=== PATIENT | male | born 1950 | race Caucasian/White ===

== ENCOUNTER 2024-01-31 14:28 | Outpatient (AMB) | payer MEDICARE, MEDICAID, SELFPAY ==
--- NOTE | 2024-01-31 14:30 | A.OFFVIS_ITS ---
Intake Vital Signs 01/31/24 14:47 Height 5 ft 0.7 in Weight 132 lb BMI 25.2 BP 114/72 Blood Pressure Location Lt brachial Position Sitting Respiration 12 Pulse 106 H Pulse Source Pulse Oximeter Pulse Oximetry (%) 93 Oxygen Delivery Method Room Air Intake Visit Reasons: Chronic Cervical Pain Intake Note: Patient comes in for initial visit was referred by primary care. Reports pain 08/21. Allergies lisinopril Allergy (Verified 01/31/24 14:48) Cough lidocaine patch Allergy (Uncoded 01/25/24 11:35) Swelling HPI HPI Comments History of Present Illness Details Sincere is very pleasant 73 years old gentleman who presents in my office with complains on cervicalgia pain in the neck. Somehow he is fairly convinced that his pain in the neck related to a procedure which was done on his neck many years ago. That was Marco A filter insertion, the procedure was done to prevent blood clots traveling to his lungs. The procedure was done from the cervical axis. Since then he believes that the pain is related to the procedure. She reports the pain starts behind the ears and goes down the neck and spreads down to the upper shoulders between the scapula us and lower in his back. He describes his pain as lots and lots of pressure. He can not sleep normally because of his pain. He believes that he never had any injection in his neck. However he describes the situation when some needle was placed in his neck however the procedure was not performed (this is according to the patient.). He has COPD coronary artery disease congestive heart failure chronic kidney disease stage 3 history of DVT in adulthood hypertension hyperthyroidism history of iliac artery occlusion impaired fasting glucose history of pericardial effusion right renal artery stenosis schizoaffective disorder and venous hypertension. His past surgical history significant for cardiac stents in 2019 IVC filter in serve it into IVC. He admits smoking cigarettes denies drinking alcohol denies recreational drugs. [facility] Medical History (Updated 01/31/24 @ 15:03 by Ernesto Ramos MD) Cervicalgia CHF (congestive heart failure) CKD (chronic kidney disease), stage III Chronic obstructive pulmonary disease HTN (hypertension) Family History (Updated 01/25/24 @ 11:34 by Katarina Fountain) Mother Uterine cancer Father Hypertension Stroke Social History (Updated 01/25/24 @ 11:32 by Katarina Fountain) Tobacco use type: Cigarette Substance Use Type: Marijuana Review of Systems Const Reports fatigue and Reports lethargy ENT Reports Normal hearing present Card Reports as per HPI Resp Reports as per HPI GI Reports no additional complaints Musc Reports as per HPI Neuro Reports no additional complaints, Reports Normal hearing present, Denies Abnormal speech present and Denies Sensory deficit (Neuro) Psych Reports as per HPI Endo Reports fatigue Physical Exam Vital Signs: Last Vital Signs Pulse 106 H 01/31/24 14:47 Resp 12 01/31/24 14:47 BP 114/72 01/31/24 14:47 Pulse Ox 93 01/31/24 14:47 Oxygen Delivery Method Room Air 01/31/24 14:47 BMI result Body Mass Index 25.2 Const General: acute distress mild Nutritional Appearance: malnourished and thin Orientation/consciousness: patient oriented x3 Eyes General: appearance normal, both eyes and all related structures Pupils: Equal, round and reactive pupils present EOM: EOMs intact bilaterally Neck Other: No tenderness on palpation in paraspinal spinal region cervical spine. Minor tenderness on palpation in the bilateral projection of the paraspinal muscles in the area of the between the shoulder blades. Axial pressure does not aggravate the pain however axial extension make the pain in the neck much better. Neck: No full ROM Chest Chest palpation & inspection: normal inspection of the chest Resp Effort & Inspection: abnormal respiratory effort, not able to speak in complete sentences, abnormal respiratory pattern, audible wheezes, no cough, decreased respiratory effort, grunting, labored, nasal flaring and pursed lip breathing Cardio Jugular venous distension: JVD GI Inspection: Yes normal to inspection Neuro General: patient oriented x3 and gait normal Cranial nerves: Yes CN's II-XII intact bilaterally, Yes Equal, round and reactive pupils present, Yes Normal hearing present and Yes Ability to bilaterally elevate shoulders present Speech: No Abnormal speech present Gait exam (Neuro): Normal gait present Motor exam (neuro): 5/5 motor strength present throughout Sensory Exam: No Sensory deficit (Neuro) Extrem General: No pedal edema Psych Speech and movement: Normal speech and movement present Affect: normal affect Attitude: cooperative Thought process: Normal thought process present Thought content: Normal thought content present Insight: Good insight present (Psych) Judgement: Good judgement present (Psych) Assessment & Plan Assessment & Plan (1) Spondylosis of cervical region without myelopathy or radiculopathy: Code(s): M47.812 - Spondylosis without myelopathy or radiculopathy, cervical region (2) Chronic pain syndrome: Code(s): G89.4 - Chronic pain syndrome (3) Schizoaffective disorder: Code(s): F25.9 - Schizoaffective disorder, unspecified Plan The patient had MRI done at [facility], his signed the medical information release note and we will obtain the MRI from this organization. I discussed possibility of treating this pain of the patient with some injections, diagnostic medial branch blocks were discussed, sprint PNS was discussed. When I mentioned stimulating wire he was immediately on the guards about this, he told me that ?there is a lot of lawsuits about those wires ?. I answered him that if he does not want any wires we can try steroid injections. He was asking appropriate questions on how long this injections would be lasting. I told him they would be lasting from 3-6 months. Then the patient asked and me what would be due after 6 months is over and I told him that we can repeat the procedure again. He appeared to be concerned about it he did not want to do this. I told the patient that when he will change his mind I will be able to help him. We will obtain his MRI and if he wants to schedule an appointment with me I will be glad to see him again. Coding Level of Care Code New Pt Level 3 (99210) Diagnoses Spondylosis of cervical region without myelopathy or radiculopathy M47.812 Chronic pain syndrome G89.4 Schizoaffective disorder F25.9
[2024-01-31 14:47] VITALS: BP 114/72; PULSE 106; RESP 12; O2SAT 93; BMI 25.2
== END 2024-01-31 15:00 | disposition home or self-care (01) ==
PROVIDERS: PCP Internal Medicine; Visit Provider Anesthesiology
DX: M47.812 Spondylosis without myelopathy or radiculopathy, cervical region (principal); G89.4 Chronic pain syndrome; F25.9 Schizoaffective disorder, unspecified
CPT/HCPCS: 99203

== ENCOUNTER → 2024-01-31 14:28 | Outpatient (BNVA) | payer MEDICARE, MEDICAID, SELFPAY | PROVIDERS: PCP Internal Medicine; Visit Provider Anesthesiology | DX: M47.812 Spondylosis without myelopathy or radiculopathy, cervical region (principal); G89.4 Chronic pain syndrome; F25.9 Schizoaffective disorder, unspecified; Z86.718 Personal history of other venous thrombosis and embolism | CPT/HCPCS: 99202 ==

== ENCOUNTER 2024-02-19 13:22 | Outpatient (AMB) | payer MEDICARE, MEDICAID, SELFPAY ==
--- NOTE | 2024-02-19 14:28 | HO.SPINEOV ---
Intake Intake Visit Reasons: Neck pain Intake Note: Mr. Park is here today c/o Shoulder/Neck pain. Axle Polisher Required: No Allergies lisinopril Allergy (Verified 01/31/24 14:48) Cough lidocaine patch Allergy (Uncoded 01/25/24 11:35) Swelling Assessment & Plan Assessment & Plan (1) Chronic pain syndrome: Code(s): G89.4 - Chronic pain syndrome Plan Dear Dr Mcleod, I saw Mr. Park in the office today to evaluate him for his neck pain. He has a very complicated 73-year-old male with extensive medical history not limited to but including CHF, CAD, severe COPD on oxygen at home, antithrombin 3 with history of DVTs, IVC filter, carotid stenosis amongst other things who has had posterior neck pain for 4 years. It has a midline posterior neck pain which radiates up to the back of his head. He will also get pain down across the top of his shoulders. He does not have any pain radiating down into the arms or hands. The pain is there all day every day and even at night. He has tried pain medications, [id number] as well as prescription without any significant relief. He is very frustrated because he can never seemed to get comfortable. He does not report any myelopathic symptoms. 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 He had cortisone injections 1 time at [facility] [employer] [facility] many many years ago. He has not even sure if it was done for this specific issue. He did see Dr. Ramos who discuss some options with him including injections and a spinal cord stimulator but the patient was reluctant to proceed with this. His daughter brought him here today for evaluation. She works at the hospital and wanted to see if there something we could offer him in evaluation. PMH: As above he has extensive medical problems not limited to but including CHF, CAD with stents a few years ago, severe COPD on oxygen at home but continues to smoke. 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 This is the limitations of what I know about his medical history what they could tell me but I suspect there is more. Social hx: Continues to smoke about 2 packs a day, does not drink use any recreational drugs Medications: Amlodipine, Eliquis, baby aspirin, atorvastatin, baclofen, cyclobenzaprine, isosorbide, methimazole, metoprolol, oxycodone, pantoprazole, Lyrica, Seroquel, Flomax Allergies: Lisinopril lidocaine patch Physical exam: He is cachectic, ill-appearing, gonzalez colored as she skin, his strength in his upper and lower extremities is full with diminished reflexes at the biceps, no White's sign, no clonus. He does have midline tenderness of the cervical spine. Imaging review: He has an MRI of the cervical spine done a [facility] in January of 2024 showing some reversal of the normal lordotic curvature of the cervical spine, there is a slight anterior listhesis of C7 on T1 and some moderate degenerative disc disease at C5-6 and C6-7. There is no spinal cord compression, no T2 cord signal change. Impression: 73-year-old male with extensive medical history including severe probably end-stage COPD on home oxygen continues to smoke, CAD, CHF, coagulopathy who presents today for evaluation of chronic posterior midline neck pain radiating out into his shoulders. He has had the pain now for 4 years, it has a chronic constant pain which is unrelenting. Has not responded to pain medications. He has not yet had a thorough trial of injections. He did try PT without any relief. I reviewed his MRI and it does show some degenerative changes and there is disc disease at multiple levels. In a typical situation we would try to localize this a little further and investigate for potential anterior cervical fusion but given his history, I think any attempt to fix his neck pain would ultimately result in very high morbidity and mortality. Especially any anterior approach would likely result in tracheostomy permanently and high complication risk of aspiration, pneumonia etc.. I think he should just follow up with Dr. Ramos and reconsider the injections. He understands that this is a much safer option for him so I will contact Dr. Ramos about resuming talks for the injections and spinal cord stimulator. Thank you for allowing us to care for your patient. The total time spent with this visit with this patient was 45 minutes reviewing history, physical exam, cervical imaging review, and implementation of treatment plan or further diagnostic testing Rajat Maddox MD,PhD [facility] Coding Level of Care Code New Pt Level 4 (36809) Diagnoses Chronic pain syndrome G89.4
== END 2024-02-19 15:25 | disposition home or self-care (01) ==
PROVIDERS: PCP Internal Medicine; Visit Provider Physician Assistant
DX: G89.4 Chronic pain syndrome (principal)
CPT/HCPCS: 99204

== ENCOUNTER → 2024-02-19 13:22 | Outpatient (BNVA) | payer MEDICARE, MEDICAID, SELFPAY | PROVIDERS: PCP Internal Medicine; Visit Provider Physician Assistant | DX: G89.4 Chronic pain syndrome (principal) | CPT/HCPCS: 99202 ==

== ENCOUNTER 2024-03-26 14:35 | Outpatient (AMB) | payer MEDICARE, MEDICAID, SELFPAY ==
--- NOTE | 2024-03-26 14:52 | MHC.OFFVIS ---
Vital Signs 03/26/24 15:03 Height 5 ft 0.7 in Weight 127 lb 8 oz BMI 24.3 BP 88/64 L Blood Pressure Location Lt brachial Position Sitting Respiration 14 Pulse 94 Pulse Source Pulse Oximeter Pulse Oximetry (%) 95 Oxygen Delivery Method Room Air Intake Visit Reasons: discuss options Intake Note: Patient comes in to discuss options. Reports pain 08/21. Allergies lisinopril Allergy (Verified 03/26/24 15:03) Cough lidocaine patch Allergy (Uncoded 01/25/24 11:35) Swelling HPI Comments Details: Sincere is very pleasant 73 years old gentleman who presents in my office with complains on cervicalgia pain in the neck. he is fairly convinced that his pain in the neck related to a procedure which was done on his neck many years ago. That was [place] filter insertion, the procedure was done to prevent blood clots traveling to his lungs. The procedure was done from the cervical axis. Prolonged and difficult conversation ensued today. I the patient is very desperate to get his pain alleviated. However he reports that he has needle phobia and the he may react abruptly to injections with sharp movements. This would create dangerous situation for the patient in the operating room for the patient as well as for the staff. I explained all of this to the patient. I offered him diagnostic medial branch block bilateral C4-C5 C6 in the attempt to alleviate his pain. He decided to think about it he will give us a call if he decides to go for this procedure. Alternatively we can try nonsteroid anti-inflammatory drugs to help his pain, he can not obtain those [id number]. Previously he was for did not to take NSAIDs because he was on Coumadin however since insertion of Marco A filter he has no longer on Coumadin. He was examined by neurosurgery Raajt Braden and he was recommended to go back to pain management. She reports the pain starts behind the ears and goes down the neck and spreads down to the upper shoulders between the scapula us and lower in his back. He describes his pain as lots and lots of pressure. He can not sleep normally because of his pain. He believes that he never had any injection in his neck. However he describes the situation when some needle was placed in his neck however the procedure was not performed (this is according to the patient.). He has COPD coronary artery disease congestive heart failure chronic kidney disease stage 3 history of DVT in adulthood hypertension hyperthyroidism history of iliac artery occlusion impaired fasting glucose history of pericardial effusion right renal artery stenosis schizoaffective disorder and venous hypertension. His past surgical history significant for cardiac stents in 2019 IVC filter in serve it into IVC. [facility] Medical History (Updated 01/31/24 @ 15:03 by Ernesto Ramos MD) Cervicalgia CHF (congestive heart failure) CKD (chronic kidney disease), stage III Chronic obstructive pulmonary disease HTN (hypertension) Family History (Updated 01/25/24 @ 11:34 by Katarina Fountain) Mother Uterine cancer Father Hypertension Stroke Social History (Updated 01/25/24 @ 11:32 by Katarina Fountain) Tobacco use type: Cigarette Substance Use Type: Marijuana Review of Systems Const All systems reviewed & are unremarkable except as noted in HPI and below ENT Reports Normal hearing present Neuro Reports Normal hearing present, Denies Abnormal speech present and Denies Sensory deficit (Neuro) Physical Exam Vital Signs: Last Vital Signs Pulse 94 03/26/24 15:03 Resp 14 03/26/24 15:03 BP 88/64 L 03/26/24 15:03 Pulse Ox 95 03/26/24 15:03 Oxygen Delivery Method Room Air 03/26/24 15:03 BMI result Body Mass Index 24.3 Const General: acute distress mild Nutritional Appearance: malnourished and thin Orientation/consciousness: patient oriented x3 Eyes General: appearance normal, both eyes and all related structures Pupils: Equal, round and reactive pupils present EOM: EOMs intact bilaterally Neck Other: No tenderness on palpation in paraspinal spinal region cervical spine. Minor tenderness on palpation in the bilateral projection of the paraspinal muscles in the area of the between the shoulder blades. Axial pressure does not aggravate the pain however axial extension make the pain in the neck much better. Neck: No full ROM Chest Chest palpation & inspection: normal inspection of the chest Resp Effort & Inspection: abnormal respiratory effort, not able to speak in complete sentences, abnormal respiratory pattern, audible wheezes, no cough, decreased respiratory effort, grunting, labored, nasal flaring and pursed lip breathing Cardio Jugular venous distension: JVD GI Inspection: Yes normal to inspection Neuro General: patient oriented x3 and gait normal Cranial nerves: Yes CN's II-XII intact bilaterally, Yes Equal, round and reactive pupils present, Yes Normal hearing present and Yes Ability to bilaterally elevate shoulders present Speech: No Abnormal speech present Gait exam (Neuro): Normal gait present Motor exam (neuro): 5/5 motor strength present throughout Sensory Exam: No Sensory deficit (Neuro) Extrem General: No pedal edema Psych Speech and movement: Normal speech and movement present Affect: normal affect Attitude: cooperative Thought process: Normal thought process present Thought content: Normal thought content present Insight: Good insight present (Psych) Judgement: Good judgement present (Psych) Assessment & Plan Assessment & Plan (1) Spondylosis of cervical region without myelopathy or radiculopathy: Code(s): M47.812 - Spondylosis without myelopathy or radiculopathy, cervical region Category: Medical (2) Chronic pain syndrome: Code(s): G89.4 - Chronic pain syndrome Category: Medical (3) Schizoaffective disorder: Code(s): F25.9 - Schizoaffective disorder, unspecified Category: Medical Plan It was prolonged and difficult conversation today with the patient. Again I discussed possibility of treating this pain of the patient with some injections, diagnostic medial branch blocks were discussed, sprint PNS was discussed. Today he is more lenient to were accepting peripheral nerve stimulation however again reluctant to accept it. Today he said that he is very sensitive to needle sticks and may reaction appropriately with a brown motions putting himself at risk as well as putting staff at risk. I told him that if he agrees to go for the procedure awake and agrees to behave during the procedure and stay absolutely motion less during the procedure I can try C4-C5 C6 medial branch block to help his pain. If if this medial branch block will be helpful for his pain we can try sprint PNS because it does not require psychological evaluation. The other modalities probably are not good for him because he has schizoaffective disorder and will not be approved for implantable devices. So at the end of the conversation we agreed that when he is ready to go for the injection he will give us a call and we will schedule him for the procedure as above. Patient Instructions: I here by testify that I spent 35 minutes in conversation with this patient as well as planning his care and organizing this note. Coding Level of Care Code Est Pt Level 4 (41249) Diagnoses Spondylosis of cervical region without myelopathy or radiculopathy M47.812 Chronic pain syndrome G89.4 Schizoaffective disorder F25.9
[2024-03-26 15:03] VITALS: BP 88/64; PULSE 94; RESP 14; O2SAT 95; BMI 24.3
== END 2024-03-26 15:31 | disposition home or self-care (01) ==
PROVIDERS: PCP Internal Medicine; Visit Provider Anesthesiology
DX: M47.812 Spondylosis without myelopathy or radiculopathy, cervical region (principal); G89.4 Chronic pain syndrome; F25.9 Schizoaffective disorder, unspecified
CPT/HCPCS: 99214

== ENCOUNTER → 2024-03-26 14:35 | Outpatient (BNVA) | payer MEDICARE, MEDICAID, SELFPAY | PROVIDERS: PCP Internal Medicine; Visit Provider Anesthesiology | DX: M47.812 Spondylosis without myelopathy or radiculopathy, cervical region (principal); G89.4 Chronic pain syndrome; F25.9 Schizoaffective disorder, unspecified | CPT/HCPCS: 99212 ==